=== PATIENT | female | born 1980 | race Caucasian/White ===

== ENCOUNTER 2023-05-30 08:58 | Outpatient (CLI) | payer BC, SELFPAY ==
--- NOTE | 2023-05-30 09:15 | US_ITS ---
Patient: MATIAS NOBLE Facility:?[facility] Patient ID:?[id number] Site Patient ID:?[id number]. Site :?[id number] Study:?US-Pelvis TA/TV-05/30/2023 9:50:53 AM Ordering Physician:RAIMUNDO Final Report: INDICATION: Abnormal uterine bleeding COMPARISON: none TECHNIQUE: 2D zavala scale and color Doppler images were acquired of the pelvis using a transabdominal and transvaginal approach. FINDINGS: Sonographic images demonstrate a normal size and smooth outer contour of the uterus. Uterus measures 9.5 cm in length by 4.8 cm in AP diameter by 5.9 cm in transverse dimension. The myometrium has a normal uniform echotexture. The endometrial lining appears somewhat ill-defined and measures 9 mm in composite thickness. The right ovary measures 3.3 x 2.1 x 1.9 cm in size and the left ovary measures 3.9 x 2.0 x 1.8 cm. The ovaries demonstrate normal arterial and venous blood flow on color Doppler analysis. There are no suspicious fluid collections within the cul-de-sac. IMPRESSION: The endometrial stripe is somewhat ill-defined and measures 9 millimeters. No endometrial fluid or polyp. No uterine fibroid. Dictated by Alejandro Curiel MD @ 05/30/2023 10:17:12 AM Signed by:?Alejandro Curiel MD @05/30/2023 10:17:12 AM (Electronic Signature)
== END 2023-05-30 08:59 | disposition home or self-care (01) ==
LOC: US 08:58
PROVIDERS: PCP Physician Assistant; Visit Provider Physician Assistant
DX: N92.0 Excessive and frequent menstruation with regular cycle (principal); D50.9 Iron deficiency anemia, unspecified
CPT/HCPCS: 76830; 76856

== ENCOUNTER 2023-08-17 10:17 | Outpatient (CLI) | payer BC, SELFPAY | END 2023-08-17 10:18 | disposition home or self-care (01) | LOC: NFLDREF 09-04 09:31 | PROVIDERS: PCP Physician Assistant; Referring Provider Physician Assistant; Visit Provider Physician Assistant | DX: N92.0 Excessive and frequent menstruation with regular cycle (principal); D50.9 Iron deficiency anemia, unspecified; Z13.9 Encounter for screening, unspecified; Z13.6 Encounter for screening for cardiovascular disorders | CPT/HCPCS: 80061; 82728 ==